=== PATIENT | female | born 1990 | race Two or more races ===

== ENCOUNTER 2024-10-26 13:37 | Inpatient (IN) | payer MEDICAID, OTHER ==
[~2024-10-26] VITALS: Ht 157.5 cm; Wt 57.5 kg
[2024-10-26 14:00] VITALS: PULSE 121; RESP 17; O2SAT 98
--- NOTE | 2024-10-26 14:25 | ED.PDOC ---
HPI (NEURO) HPI Comments 33-year-old female presents with a chief complaint of ALOC. Per EMS, patient was reported missing 3 days ago by her friends. Patients friends and family pinged her cellphone and located patient at a house. Patient was found in the passenger seat of a car accompanied by some male (unknown relationship) who states that 3 days ago patient texted him to go pick her up. 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 Patient is nonverbal at this time, but is awake, alert, and moving all four extremities. Patient came in with four point restraints. No family members at bedside. Information is very limited. PMHx: Unknown at this time PSHx: Unknown at this time HPI: Poor Historian. REVIEW OF SYSTEMS: Unable to obtain since the patient has altered mental status. She is awake and makes eye contact and moving all four extremities but she does not answer any questions. CONSTITUTIONAL: Denies acute: fever, diaphoresis, chills, generalized weakness. HEAD: Denies acute: headache, photophobia Eyes: Denies acute: Double vision, vision loss, eye pain, eye discharge. EARS: Denies acute: tinnitus, hearing loss, ear discharge, ear pain, THROAT: Denies acute: sore throat, swelling, difficulty swallowing , pain with swallowing, change in voice. NECK: Denies acute: neck pain, neck swelling, stiff neck. HEART: Denies acute : chest pain, palpitations, LUNGS: Denies acute: SOB, wheezing, cough, hemoptysis ABDOMEN: Denies acute: abdominal pain, Nausea, Vomiting, diarrhea, melena , hematemesis, hematochezia SKIN: Denies acute: rash, redness, lesions, itchiness. EXTREMITIES: Denies acute: calf pain, numbness, tingling, weakness, denies pain in extremity. Denies acute: Low back pain. Neuro: Denies acute: focal neurological deficit, motor or sensory focal neurological deficit, tremors, seizure like activity, confusion, dizziness, change in mental status, loss of bowel or bladder function, cauda equina like symptoms. : Denies acute: dysuria, hematuria, flank pain, increase in urinary frequency. PSYCH: Denies acute: hallucination, suicidal ideation, homicidal ideation. FEMALE: Denies acute: abnormal vaginal bleeding, foul odor, unusual discharge. PHYSICAL EXAM: General: -----mild---acute distress, awake and alert. Head: normocephalic, atraumatic. Neck: supple, trachea is midline, no swelling. Throat: Dry oral mucosa, no apparent tongue swelling or obstruction. Eyes:, no erythema, no purulent discharge, no proptosis, no icterus. Heart: regular tachycardia, no significant murmur appreciated. Lungs: no apparent respiratory distress, No wheezing, no rhonchi, no crackles. No stridors Clear to auscultation bilaterally. Abdomen: non tender to palpation, non distended, soft, no guarding, no rebound, + bowel sounds. Neuro: Awake, does not answer any questions. Eyes are open. Moving all four extremities. Able to turn her head left and right any noise or movement in the room. Appears anxious. Skin: no petechia, no purpura, no cyanosis, non-pale, not jaundice. Lower extremities: --no - Pitting edema no deformity, no focal swelling, no calf TTP. Makes eye contact. moves all four extremities. Face: no apparent facial droop. PERRLA, EOM-I No nuchal rigidity, Kernig's sign, Brudzinski's sign, no meningeal signs. 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 Was a procedure done?: No Differential Diagnosis (SZ) Seizure: Hyperventilation, Psychogenic Seizure, Alcohol Withdrawl, Anticonvulsant Withdrawl, Closed Head Injury, CVA/TIA, Drug Ingestion, Hypocalcemia, Hypoglycemia, Hyponatremia, Hypoxemia, Meningitis, Encephalopathy CVA: CVA, Delirium Tremens, DKA, Drug Overdose, Electrolyte Imbalance, Encephalopathy, Hypoglycemia, Hypoxemia, Mass Lesion, SAH, TIA, Other (DDX include CVA, TGA, cerebellar ischemia/infarct, carotid stenosis, Intracranial mass/infection/bleed, encephalopathy, electrolyte abnormality, thyroid disease, hydrocephalus, hypoglycemia, drug toxicity, cardiac arrhythmia, seizure, infection in the elderly, Hyperammonemia., kidney failure., sepsis.) General Weakness: Dehydration, Dysrhythmia, Guillain-[place], Hypoglycemia, Meniere's disease, Myasthenia gravis, Myocardial infarction, Renal failure X-Ray, Labs, Meds, VS Vital Signs Date Time Temp Pulse Resp B/P (MAP) Pulse Ox O2 Delivery O2 Flow Rate FiO2 10/26/24 20:00 87 16 98 Room Air* 0 21 10/26/24 20:00 87 16 117/82 (94) 98 10/26/24 18:51 86 10/26/24 18:00 87 16 109/69 (82) 97 10/26/24 16:00 98.9 126 20 136/82 (100) 96 98.9 10/26/24 14:08 123 10/26/24 14:00 121 17 98 Room Air* 0 21 10/26/24 14:00 99.4 121 17 131/76 (94) 98 99.4 10/26/24 13:55 98.0 130 24 190/80 (116) 98 98.0 Lab Test 10/26/24 18:36 10/26/24 17:29 10/26/24 15:27 10/26/24 14:30 Range/Units Urine Color Light-yellow Yellow Urine Clarity Clear Clear Urine pH 6.0 5.0-9.0 Urine Specific [place] 1.017 1.001-1.035 Urine Protein Negative Negative Urine Ketones 2+ H Negative Urine Blood Negative Negative /uL Urine Nitrite Negative Negative Urine Bilirubin Negative Negative Urine Urobilinogen Normal Negative mg/dL Urine Leukocyte Esterase Negative Negative /uL Urine RBC 1 0 - 4 /hpf Urine Microscopic WBC 1 0-5 /HPF Urine Squamous Epithelial Cells Few <5 /hpf Urine Bacteria Few H None Seen /hpf Urine Mucus Few None Seen Urine Glucose Normal Normal mg/dL Urine Opiates Screen Neg NEGATIVE Urine Fentanyl Screen Neg NEGATIVE Urine Barbiturates Screen Neg NEGATIVE Urine Phencyclidine Screen Neg NEGATIVE Urine Amphetamines Screen Pos NEGATIVE Urine Benzodiazepines Screen Neg NEGATIVE Urine Cocaine Screen Neg NEGATIVE Urine Cannabinoids Screen Neg NEGATIVE Troponin I High Sensitivity 6 4 4 </=34 ng/L White Blood Count 11.6 H 4.4-10.8 10^3/uL Red Blood Count 4.76 4.0-5.20 10^6/uL Hemoglobin 13.5 12.2-16.2 g/dL Hematocrit 40.1 36.0-46.0 % Mean Corpuscular Volume 84.2 80.0-100.0 fL Mean Corpuscular Hemoglobin 28.3 28.0-32.0 pg Mean Corpuscular Hemoglobin Concent 33.6 32.0-36.0 g/dL Red Cell Distribution Width 14.2 11.8-14.3 % Platelet Count 289 140-450 10^3/uL Mean Platelet Volume 8.8 6.9-10.8 fL Neutrophils (%) (Auto) 81.7 H 37.0-80.0 % Lymphocytes (%) (Auto) 9.1 L 10.0-50.0 % Monocytes (%) (Auto) 8.5 0.0-12.0 % Eosinophils (%) (Auto) 0.0 0.0-7.0 % Basophils (%) (Auto) 0.7 0.0-2.0 % Neutrophils # (Auto) 9.5 H 1.6-8.6 10 ^3/uL Lymphocytes # (Auto) 1.1 0.4-5.4 10 ^3/uL Monocytes # (Auto) 1.0 0-1.3 10 ^3/uL Eosinophils # (Auto) 0 0-0.8 10 ^3/uL Basophils # (Auto) 0.1 0-0.2 10 ^3/uL Nucleated Red Blood Cells 0.0 % Sodium Level 140 136-145 mmol/L Potassium Level 3.4 L 3.5-5.1 mmol/L Chloride Level 105 98-107 mmol/L Carbon Dioxide Level 23 20-31 mmol/L Anion Gap 12 5-15 Blood Urea Nitrogen 6 L 9-23 mg/dL Creatinine 0.69 0.550-1.02 mg/dL Glomerular Filtration Rate Calc 118 >90 mL/min BUN/Creatinine Ratio 8.7 L 10.0-20.0 Serum Glucose 96 74-106 mg/dL Lactic Acid Level 1.5 0.4-2.0 mmol/L Calcium Level 9.5 8.7-10.4 mg/dL Magnesium Level 2.3 1.6-2.6 mg/dL Total Bilirubin 0.8 0.2-1.0 mg/dL Aspartate Amino Transferase (AST) 60 H 13-40 U/L Alanine Aminotransferase (ALT) 169 H 7-40 U/L Alkaline Phosphatase 89 46-116 U/L Ammonia < 10 L 11-32 umol/L Creatine Kinase 218 H 34-145 U/L Total Protein 7.5 5.7-8.2 g/dL Albumin 4.9 H 3.2-4.8 g/dL Beta HCG, Quantitative 0.7 L 1.5-4.2 mIU/mL Salicylates Level < 3.0 -30 mg/dL Acetaminophen Level < 2.0 L 10.0-20.0 UG/ML Plasma/Serum Blood Alcohol 3.4 <10 mg/dL PATIENT: RAUL PRICEACCT: [id number]: [id number] : 1990 LOC: ER ROOM / BED: / AGE / SEX: 33 / F ADM STATUS: REG ER SERVICE 1417 ORDERING PHYSICIAN: LUIS FERNANDO DOW DO PROCEDURE(s): HWOCT - HEAD WITHOUT CONTRAST REASON: [facility] ORDER NUMBER(s): [id number], ACCESSION NUMBER(s): [id number] EXAM: CT HEAD WITHOUT CONTRAST INDICATION: AMS TECHNIQUE: CT of the head without intravenous contrast. Radiation Dose : 1. Head: CT Dose: CTDI volume is 56.4 mGy. Dose-length product is 998.3 mGy*cm The dose indicators for CT are the volume Computed Tomography (CT) Dose Index (CTDIvol) and the Dose Length Product (DLP), and are measured in units of mGy and mGy-cm, respectively. These indicators are not patient dose, but values generated from the CT scanner acquisition factors. The report includes radiation exposure data for exposures received during this examination. COMPARISON: None FINDINGS: There is no evidence of acute intracranial hemorrhage, extra-axial collection, mass effect, midline shift, herniation or hydrocephalus. The ventricles, sulci and cisterns are age appropriate. The jordan-white differentiation is intact. Patchy periventricular and subcortical white matter hypoattenuation is nonspecific but may be related to small vessel ischemic disease. The visualized paranasal sinuses and mastoid air cells are clear. The surrounding soft tissues and osseous structures are unremarkable. IMPRESSION: 1. No acute intracranial abnormality. Radiation optimization: All CT scans at this facility use at least one of these dose optimization techniques: automated exposure control mA and/or kV adjustment per patient size (includes targeted exams where dose is matched to clinical indication) or iterative reconstruction. ATED BY: CARLITOS WANG MD DICTATED DATE/TIME: 10/26/241617 SIGNED BY: CARLITOS WANG MD SIGNED DATE/TIME: 10/26/241617 PATIENT: RAUL PRICEACCT: [id number] UNIT: [id number] : 1990 LOC: ER ROOM / BED: / AGE / SEX: 33 / F ADM STATUS: REG ER SERVICE 1417 ORDERING PHYSICIAN: LUIS FERNANDO DOW DO PROCEDURE(s): CXRP - CHEST PORTABLE REASON: AMS ORDER NUMBER(s): [id number], ACCESSION NUMBER(s): [id number] AP portable chest CLINICAL INDICATION: AMS FINDINGS: Heart size is normal. Aorta is tortuous. No infiltrates or effusions. No bony thoracic abnormalities. IMPRESSION: 1. No acute cardiopulmonary pathology. ATED BY: YAHIR GALEAS MD DICTATED DATE/TIME: 10/26/241613 SIGNED BY: YAHIR GALEAS MD SIGNED DATE/TIME: 10/26/241613 Time of 1ST Reevaluation: 14:43 Reevaluation 1ST: Unchanged Time of 2ND Reevaluation: 21:20 (Toxic screen has chest pain released showing positive for methamphetamine) Patient Education/Counseling: Diagnosis, Treatment Family Education/Counseling: No Family Present Comments Beta-hCG serum was obtained because patient was altered and is not following command and will not be able to provide us a urine sample and has been combative and we will refused a straight catheterization to obtain urine. If I do not get beta-hCG serum there was will cause a delay of care to obtain test for imaging studies to rule out any possible trauma or intracranial injury Patient presented with the above HPI.----altered level of consciousness/altered mental status--workup was initiated. patient was found with the above mentioned diagnosis. the following medications were ordered: please refer to order lists of meds and tests obtained by myself Dr. Dow. Patient ED course and VS have been stabilized. Patient has been reassessed in the ED and remained in a stable condition. Patient has been observed in the ED adequate length of time to insure improvement/stability. Escalation of care considered: Consideration of escalation to observation or admission Patient was ADMITTED to the medicine team for further evaluation and treatment of their presentation. All the reports of any imaging studies that were ordered by myself were reviewed by myself. Departure 1 Departure Time of Disposition: 21:20 Impression: Primary Impression: Altered mental status Additional Impression: Methamphetamine abuse Disposition: ADMITTED INPATIENT Admit to: Tele Condition: Guarded e-Prescriptions No Active Prescriptions or Reported Meds Discharged With: Self Critical Care Note Critical Care Time?: Yes (45 min-critical care time only) Heart Score Heart Score: Heart Score Response (Comments) Value History N/A 0 EKG N/A 0 Age N/A 0 Risk Factors N/A 0 Troponin N/A 0 Total 0 I personally scribed for LUIS FERNANDO DOW DO ([email or web address]) on 10/26/24 at 14:25. Electronically submitted by Ruy Oneill ([email or web address]). I personally scribed for LUIS FERNANDO DOW DO ([email or web address]) on 10/26/24 at 16:53. Electronically submitted by Ruy Oneill ([email or web address]). LUIS FERNANDO DOW DO Oct 26, 2024 14:25
[2024-10-26] MEDS: SODIUM CHLORIDE 0.9% 1,000 ML IV ONE ×2 (14:36→15:25)
[2024-10-26] MEDS: LORazepam 2MG/ML-1ML VIAL IV ONE (14:36)
[2024-10-26 14:58] LABS: Basophils # (auto) 0.1 10 ^3/uL (0-0.2); Basophils % (auto) 0.7 % (0.0-2.0); Eosinophils # (auto) 0 10 ^3/uL (0-0.8); Hematocrit 40.1 % (36.0-46.0); Hemoglobin 13.5 g/dL (12.2-16.2); Lymphocytes # (auto) 1.1 10 ^3/uL (0.4-5.4); Lymphocytes % (auto) 9.1 % (10.0-50.0); Mean Corpuscular Hemoglobin 28.3 pg (28.0-32.0); Mean Corpuscular Hgb Conc. 33.6 g/dL (32.0-36.0); Mean Corpuscular Volume 84.2 fL (80.0-100.0); Monocytes % (auto) 8.5 % (0.0-12.0); Neutrophils # (auto) 9.5 10 ^3/uL (1.6-8.6); Neutrophils % (auto) 81.7 % (37.0-80.0); Platelet Count (auto) 289 10^3/uL (140-450); Red Blood Cells 4.76 10^6/uL (4.0-5.20); Red Cell Distribution Width 14.2 % (11.8-14.3); White Blood Cell 11.6 10^3/uL (4.4-10.8)
[2024-10-26 15:17] LABS: Acetaminophen < 2.0 UG/ML (10.0-20.0); Salicylate < 3.0 mg/dL (-30)
[2024-10-26 15:18] LABS: Alkaline Phosphatase 89 U/L (46-116); Anion Gap 12 (5-15); BUN/Creatinine Ratio 8.7 (10.0-20.0); Bilirubin, Total 0.8 mg/dL (0.2-1.0); Blood Alcohol 3.4 mg/dL (<10); Calcium 9.5 mg/dL (8.7-10.4); Carbon Dioxide 23 mmol/L (20-31); Chloride 105 mmol/L (98-107); Glucose 96 mg/dL (74-106); Magnesium 2.3 mg/dL (1.6-2.6); Sodium 140 mmol/L (136-145); Total Protein 7.5 g/dL (5.7-8.2)
[2024-10-26 15:19] LABS: Alanine Aminotransferase 169 U/L (7-40); Albumin 4.9 g/dL (3.2-4.8); Aspartate Aminotransferase 60 U/L (13-40); Blood Urea Nitrogen 6 mg/dL (9-23); Creatine Kinase IFCC 218 U/L (34-145); Potassium 3.4 mmol/L (3.5-5.1)
--- NOTE | 2024-10-26 16:16 | DVH ---
AP portable chest CLINICAL INDICATION: AMS FINDINGS: Heart size is normal. Aorta is tortuous. No infiltrates or effusions. No bony thoracic abno rmalities. IMPRESSION: 1. No acute cardiopulmonary pathology.
--- NOTE | 2024-10-26 16:20 | DVH ---
EXAM: CT HEAD WITHOUT CONTRAST INDICATION: AMS TECHNIQUE: CT of the head without intravenous contrast. Radiation Dose : 1. Head: CT Dose: CTDI volume is 56.4 mGy. Dose-length product is 998.3 mGy*cm The dose indicators for CT are the volume Computed Tomography (CT) Dose Index (CTDIvol) and the Dose Length Product (DLP), and are measured in units of mGy and mGy-cm, respectively. These indicators are not patient dose, but values generated from the CT scanner acquisition factors. The report includes radiation exposure data for exposures received during this examination. COMPARISON: None FINDINGS: There is no evidence of acute intracranial hemorrhage, extra-axial collection, mass effect, midline s hift, herniation or hydrocephalus. The ventricles, sulci and cisterns are age appropriate. The jordan-white differentiation is intact. Patchy periventricular and subcortical white matter hypoattenuation is nonspecific but may be related to small vessel ischemic disease. The visualized paranasal sinuses and mastoid air cells are clear. The surrounding soft tissues and osseous structures are unremarkable. IMPRESSION: 1. No acute intracranial abnormality. Radiation optimization: All CT scans at this facility use at least one of these dose optimization fernando hniques: automated exposure control mA and/or kV adjustment per patient size (includes targeted exam s where dose is matched to clinical indication) or iterative reconstruction.
[2024-10-26 20:00] VITALS: PULSE 87; RESP 16; O2SAT 98
[2024-10-26 20:09] LABS: Urine Bacteria FEW /hpf (None Seen); Urine Blood Negative /uL (Negative); Urine Clarity Clear (Clear); Urine Color Light-Yellow (Yellow); Urine Mucus FEW (None Seen); Urine Protein, UAD Negative (Negative); Urine Specific Gravity 1.017 (1.001-1.035); Urine Squamous Epithelial Cell FEW /hpf (<5); Urine Urobilinogen Normal (Negative); Urine WBC 1 /HPF (0-5)
[2024-10-26 21:11] LABS: Amphetamine Screen, Urine Pos (NEGATIVE); Barbiturate Scree,Urine Neg (NEGATIVE); Benzodiazephine Screen, Urine Neg (NEGATIVE); Cannabinoid Screen, Urine Neg (NEGATIVE); Cocaine Screen, Urine Neg (NEGATIVE); Opiate Scree,Urine Neg (NEGATIVE); Phencyclidine Screen, Urine Neg (NEGATIVE)
[2024-10-26] MEDS: SODIUM CHLORIDE 0.9% 1,000 ML IV SCH (22:30)
[2024-10-26] MEDS: POTASSIUM CHL 20 Meq TABLET PO ONE (22:30)
[2024-10-26] MEDS: PANTOPRAZOLE 40 MG TAB PO ONE (22:30)
--- NOTE | 2024-10-26 23:35 | DVHHPRES ---
History of Present Illness Resident Creating Document: TERRYLOUSYLVIE RESIDENT History of Present Illness Patient is a 33-year-old female with no significant past medical history was brought in to the ED with a chief complaint of altered level of consciousness. Family reported that the patient was missing since 3 days and they tracked her eventually to a location where she was found in the car on the passenger seat with an unknown male who reported to be her friend and the usually do "drugs together". On arrival to the ED patient was altered and was in 4 point restraint. Patient was given IV fluids. When I went and talked with the patient, she was A&O to time, person but disoriented to place and she knew why she was in the hospital. Patient reported that she lapsed on methamphetamine. Patient denied any chest pain, shortness of breath, nausea or vomiting, palpitations, headache, blurred vision. Past medical history: None Past surgical history: None Social history: Patient smokes methamphetamine but denies any alcohol or smoking tobacco Home medications: None Review of Systems Review of Systems Seen and examined at the bedside Reports feeling anxious Denies any other acute complaints Allergies: Coded Allergies: UNOBTAINABLE (Unverified , 10/26/24) Medications Current Medications Medications Dose Ordered Sig/Jayda Route Start Time Stop Time Status Last Admin Dose Admin Sodium Chloride 1,000 ml @ 100 mls/hr Q10H IV 10/26/24 22:00 10/26/24 22:30 100 MLS/HR Lorazepam 1 mg Q12HP PRN IV 10/26/24 22:00 Pantoprazole Sodium 40 mg DAILY@0600 PO 10/27/24 06:00 Exam Vital Signs Vital Signs Date Time Temp Pulse Resp B/P (MAP) Pulse Ox O2 Delivery O2 Flow Rate FiO2 10/26/24 20:00 87 16 98 Room Air* 0 21 10/26/24 20:00 117/82 (94) 10/26/24 16:00 98.9 98.9 Exam Gen - no pallor, no icterus, no cyanosis, no clubbing, no LAD, no edema . Skin - Patients skin is warm and dry. HEENT - normocephalic, atraumatic, moist mucous membranes. Neck - full ROM, no LAD, no JVD Pulmonary - B/L equal breath sounds, no crackles, no wheezing, no stridor. cardiovascular - regular S1,S2 heard, no added sounds, no murmurs heard. GI - soft, nontender abdomen. no hepatospleenomegaly. Bowel sounds normoactive Neurological - Patient is A/O X 3 . Bilateral upper extremity strength 5/5, bilateral lower extremity strength 5/5, no facial droop, normal speech, no tremor, no sensory deficiets. Labs/Xrays Labs Test 10/26/24 18:36 10/26/24 17:29 10/26/24 14:30 Range/Units Urine Color Light-yellow Yellow Urine Clarity Clear Clear Urine pH 6.0 5.0-9.0 Urine Specific [place] 1.017 1.001-1.035 Urine Protein Negative Negative Urine Ketones 2+ H Negative Urine Blood Negative Negative /uL Urine Nitrite Negative Negative Urine Bilirubin Negative Negative Urine Urobilinogen Normal Negative mg/dL Urine Leukocyte Esterase Negative Negative /uL Urine RBC 1 0 - 4 /hpf Urine Microscopic WBC 1 0-5 /HPF Urine Squamous Epithelial Cells Few <5 /hpf Urine Bacteria Few H None Seen /hpf Urine Mucus Few None Seen Urine Glucose Normal Normal mg/dL Urine Opiates Screen Neg NEGATIVE Urine Fentanyl Screen Neg NEGATIVE Urine Barbiturates Screen Neg NEGATIVE Urine Phencyclidine Screen Neg NEGATIVE Urine Amphetamines Screen Pos NEGATIVE Urine Benzodiazepines Screen Neg NEGATIVE Urine Cocaine Screen Neg NEGATIVE Urine Cannabinoids Screen Neg NEGATIVE Troponin I High Sensitivity 6 </=34 ng/L White Blood Count 11.6 H 4.4-10.8 10^3/uL Red Blood Count 4.76 4.0-5.20 10^6/uL Hemoglobin 13.5 12.2-16.2 g/dL Hematocrit 40.1 36.0-46.0 % Mean Corpuscular Volume 84.2 80.0-100.0 fL Mean Corpuscular Hemoglobin 28.3 28.0-32.0 pg Mean Corpuscular Hemoglobin Concent 33.6 32.0-36.0 g/dL Red Cell Distribution Width 14.2 11.8-14.3 % Platelet Count 289 140-450 10^3/uL Mean Platelet Volume 8.8 6.9-10.8 fL Neutrophils (%) (Auto) 81.7 H 37.0-80.0 % Lymphocytes (%) (Auto) 9.1 L 10.0-50.0 % Monocytes (%) (Auto) 8.5 0.0-12.0 % Eosinophils (%) (Auto) 0.0 0.0-7.0 % Basophils (%) (Auto) 0.7 0.0-2.0 % Neutrophils # (Auto) 9.5 H 1.6-8.6 10 ^3/uL Lymphocytes # (Auto) 1.1 0.4-5.4 10 ^3/uL Monocytes # (Auto) 1.0 0-1.3 10 ^3/uL Eosinophils # (Auto) 0 0-0.8 10 ^3/uL Basophils # (Auto) 0.1 0-0.2 10 ^3/uL Nucleated Red Blood Cells 0.0 % Sodium Level 140 136-145 mmol/L Potassium Level 3.4 L 3.5-5.1 mmol/L Chloride Level 105 98-107 mmol/L Carbon Dioxide Level 23 20-31 mmol/L Anion Gap 12 5-15 Blood Urea Nitrogen 6 L 9-23 mg/dL Creatinine 0.69 0.550-1.02 mg/dL Glomerular Filtration Rate Calc 118 >90 mL/min BUN/Creatinine Ratio 8.7 L 10.0-20.0 Serum Glucose 96 74-106 mg/dL Lactic Acid Level 1.5 0.4-2.0 mmol/L Calcium Level 9.5 8.7-10.4 mg/dL Magnesium Level 2.3 1.6-2.6 mg/dL Total Bilirubin 0.8 0.2-1.0 mg/dL Aspartate Amino Transferase (AST) 60 H 13-40 U/L Alanine Aminotransferase (ALT) 169 H 7-40 U/L Alkaline Phosphatase 89 46-116 U/L Ammonia < 10 L 11-32 umol/L Creatine Kinase 218 H 34-145 U/L Total Protein 7.5 5.7-8.2 g/dL Albumin 4.9 H 3.2-4.8 g/dL Beta HCG, Quantitative 0.7 L 1.5-4.2 mIU/mL Salicylates Level < 3.0 -30 mg/dL Acetaminophen Level < 2.0 L 10.0-20.0 UG/ML Plasma/Serum Blood Alcohol 3.4 <10 mg/dL Assessment/Plan Assessment/Plan Acute metabolic encephalopathy likely due to drugs Methamphetamine use Anxiety likely due to above Hypokalemia - urine drug screen positive for methamphetamine - IV fluids - lorazepam PRN - potassium replaced PUD prophylaxis: Protonix Goals of care discussed with the patient for over 23 minutes. Full code Plan discussed with Dr. Epstein Plan discussed with: Patient My Orders Orders - MARITZA STEWART Procedure Category Date Status Time Admit ADMIT 10/26/24 Transmitted 21:50 Stat Ekg For Chest JAZLYN 10/26/24 In Process Pain 21:50 Notify Md Of Changes JAZLYN 10/26/24 In Process From Base 21:50 Sodium Chloride 0.9% PHA 10/26/24 In Process 22:00 Complete Blood Count LAB 10/27/24 Verified 04:00 Comprehensive LAB 10/27/24 Verified Metabolic Panel 04:00 Lorazepam 2mg/Ml Inj PHA 10/26/24 In Process (Ativan Inj) 22:00 Pantoprazole Tablet PHA 10/27/24 In Process (Protonix Tablet) 06:00 Date of Service: Oct 26, 2024 Billing Provider: GIOVANNI EPSTEIN MD Common Visit Codes: 18699-[id number] INP/OBS CARE (HIGH) Secondary Visit Codes: 26263-[id number] CARE PLAN 30 MINUTES MARITZA STEWART RESIDENT Oct 26, 2024 23:35
[2024-10-27 00:08] VITALS: BP 140/97; PULSE 107; RESP 18; TEMP 98.7; O2SAT 0; O2SAT 98
[2024-10-27 01:00] VITALS: BP 140/97; PULSE 107; RESP 17; TEMP 98.7; O2SAT 98
[2024-10-27 05:00] VITALS: BP 124/79; PULSE 105; RESP 20; TEMP 98.3; O2SAT 97
[2024-10-27] MEDS: PANTOPRAZOLE 40 MG TAB PO SCH (05:44)
[2024-10-27] MEDS: LORazepam 2MG/ML-1ML VIAL IV PRN (05:46)
[2024-10-27 06:54] LABS: Basophils # (auto) 0.1 10 ^3/uL (0-0.2); Basophils % (auto) 0.7 % (0.0-2.0); Eosinophils # (auto) 0 10 ^3/uL (0-0.8); Eosinophils % (auto) 0.2 % (0.0-7.0); Hematocrit 34.1 % (36.0-46.0); Hemoglobin 11.6 g/dL (12.2-16.2); Lymphocytes # (auto) 1.2 10 ^3/uL (0.4-5.4); Mean Corpuscular Hemoglobin 28.8 pg (28.0-32.0); Mean Corpuscular Hgb Conc. 34.1 g/dL (32.0-36.0); Mean Corpuscular Volume 84.6 fL (80.0-100.0); Monocytes # (auto) 0.8 10 ^3/uL (0-1.3); Monocytes % (auto) 10.9 % (0.0-12.0); Neutrophils # (auto) 5.4 10 ^3/uL (1.6-8.6); Neutrophils % (auto) 72.2 % (37.0-80.0); Platelet Count (auto) 248 10^3/uL (140-450); Red Blood Cells 4.03 10^6/uL (4.0-5.20); Red Cell Distribution Width 14.5 % (11.8-14.3); White Blood Cell 7.5 10^3/uL (4.4-10.8)
[2024-10-27 07:08] LABS: Albumin 4.3 g/dL (3.2-4.8); Anion Gap 12 (5-15); Carbon Dioxide 21 mmol/L (20-31); Chloride 106 mmol/L (98-107); Glucose 81 mg/dL (74-106); Sodium 139 mmol/L (136-145)
[2024-10-27 07:09] LABS: Total Protein 6.4 g/dL (5.7-8.2)
[2024-10-27 07:11] LABS: Bilirubin, Total 0.7 mg/dL (0.2-1.0)
[2024-10-27 07:12] LABS: Alanine Aminotransferase 112 U/L (7-40); Aspartate Aminotransferase 39 U/L (13-40); BUN/Creatinine Ratio 9.8 (10.0-20.0); Blood Urea Nitrogen < 5 mg/dL (9-23); Calcium 8.2 mg/dL (8.7-10.4); Potassium 3.4 mmol/L (3.5-5.1)
[2024-10-27 07:42] LABS: Alkaline Phosphatase 75 U/L (46-116)
[2024-10-27 08:00] VITALS: PULSE 60; RESP 18; O2SAT 99
--- NOTE | 2024-10-27 08:51 | DVH ---
INDICATION: transamnitis TECHNIQUE: Multiple real-time sonographic images were obtained of the right upper quadrant. COMPARISON: None FINDINGS: The liver demonstrates HETEROGENEOUS echotexture without focal mass lesions. The liver fabio ures 16 cm. There is no intrahepatic or extrahepatic ductal dilatation. The common duct measures 0 .5 mm. GALLSTONES ARE PRESENT. The gallbladder wall measures 0.3mm and is within normal limits. The right kidney measures 12 cm. The right kidney is normal in contour, size, and shape. The echog enicity is normal. There is no hydronephrosis. The pancreas is not well visualized due to overlying bowel gas. IMPRESSION: Gallstones. Hepatic steatosis.
[2024-10-27 09:00] VITALS: BP 116/75; PULSE 60; RESP 18; TEMP 97.4; O2SAT 99
--- NOTE | 2024-10-27 10:33 | ECG ---
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
[2024-10-27] MEDS: POTASSIUM EFFERVESENT TAB 25 MEQ PO ONE (11:44)
[2024-10-27] MEDS: CYANOCOBALAMIN (B-12) 1000 MCG/1 ML VIAL IM ONE (13:00)
[2024-10-27] MEDS: ERGOCALCIFEROL 50,000 UNIT(1.25MG) CAP PO SCH (13:00)
--- NOTE | 2024-10-27 17:23 | DVHDSRES ---
Discharge Summary Date of Admission Resident Creating Document: MARITZA STEWART RESIDENT Oct 26, 2024 at 21:50 Labs/Diagnostic Data: Laboratory Results Test 10/27/24 07:57 10/27/24 06:26 10/26/24 18:36 10/26/24 17:29 White Blood Count 7.5 10^3/uL (4.4-10.8) Red Blood Count 4.03 10^6/uL (4.0-5.20) Hemoglobin 11.6 g/dL (12.2-16.2) Hematocrit 34.1 % (36.0-46.0) Mean Corpuscular Volume 84.6 fL (80.0-100.0) Mean Corpuscular Hemoglobin 28.8 pg (28.0-32.0) Mean Corpuscular Hemoglobin Concent 34.1 g/dL (32.0-36.0) Red Cell Distribution Width 14.5 % (11.8-14.3) Platelet Count 248 10^3/uL (140-450) Mean Platelet Volume 8.6 fL (6.9-10.8) Neutrophils (%) (Auto) 72.2 % (37.0-80.0) Lymphocytes (%) (Auto) 16.0 % (10.0-50.0) Monocytes (%) (Auto) 10.9 % (0.0-12.0) Eosinophils (%) (Auto) 0.2 % (0.0-7.0) Basophils (%) (Auto) 0.7 % (0.0-2.0) Neutrophils # (Auto) 5.4 10 ^3/uL (1.6-8.6) Lymphocytes # (Auto) 1.2 10 ^3/uL (0.4-5.4) Monocytes # (Auto) 0.8 10 ^3/uL (0-1.3) Eosinophils # (Auto) 0 10 ^3/uL (0-0.8) Basophils # (Auto) 0.1 10 ^3/uL (0-0.2) Nucleated Red Blood Cells 0.0 % Sodium Level 139 mmol/L (136-145) Potassium Level 3.4 mmol/L (3.5-5.1) Chloride Level 106 mmol/L (98-107) Carbon Dioxide Level 21 mmol/L (20-31) Anion Gap 12 (5-15) Blood Urea Nitrogen < 5 mg/dL (9-23) Creatinine 0.51 mg/dL (0.550-1.02) Glomerular Filtration Rate Calc 127 mL/min (>90) BUN/Creatinine Ratio 9.8 (10.0-20.0) Serum Glucose 81 mg/dL (74-106) Calcium Level 8.2 mg/dL (8.7-10.4) Total Bilirubin 0.7 mg/dL (0.2-1.0) Aspartate Amino Transferase (AST) 39 U/L (13-40) Alanine Aminotransferase (ALT) 112 U/L (7-40) Alkaline Phosphatase 75 U/L (46-116) Total Protein 6.4 g/dL (5.7-8.2) Albumin 4.3 g/dL (3.2-4.8) Vitamin B12 Level 368 pg/mL (211-911) Vitamin D 25-Hydroxy 14.4 ng/mL (30.0-100) Thyroid Stimulating Hormone (TSH) 1.20 uIU/mL (0.55-4.78) HIV (1&2) Antibody Negative (Negative) Urine Color Light-yellow (Yellow) Urine Clarity Clear (Clear) Urine pH 6.0 (5.0-9.0) Urine Specific [place] 1.017 (1.001-1.035) Urine Protein Negative (Negative) Urine Ketones 2+ (Negative) Urine Blood Negative /uL (Negative) Urine Nitrite Negative (Negative) Urine Bilirubin Negative (Negative) Urine Urobilinogen Normal mg/dL (Negative) Urine Leukocyte Esterase Negative /uL (Negative) Urine RBC 1 /hpf (0 - 4) Urine Microscopic WBC 1 /HPF (0-5) Urine Squamous Epithelial Cells Few /hpf (<5) Urine Bacteria Few /hpf (None Seen) Urine Mucus Few (None Seen) Urine Glucose Normal mg/dL (Normal) Urine Opiates Screen Neg (NEGATIVE) Urine Fentanyl Screen Neg (NEGATIVE) Urine Barbiturates Screen Neg (NEGATIVE) Urine Phencyclidine Screen Neg (NEGATIVE) Urine Amphetamines Screen Pos (NEGATIVE) Urine Benzodiazepines Screen Neg (NEGATIVE) Urine Cocaine Screen Neg (NEGATIVE) Urine Cannabinoids Screen Neg (NEGATIVE) Troponin I High Sensitivity 6 ng/L (</=34) Test 10/26/24 14:30 Lactic Acid Level 1.5 mmol/L (0.4-2.0) Magnesium Level 2.3 mg/dL (1.6-2.6) Ammonia < 10 umol/L (11-32) Creatine Kinase 218 U/L (34-145) Beta HCG, Quantitative 0.7 mIU/mL (1.5-4.2) Salicylates Level < 3.0 mg/dL (-30) Acetaminophen Level < 2.0 UG/ML (10.0-20.0) Plasma/Serum Blood Alcohol 3.4 mg/dL (<10) Other Laboratory Tests 10/27/24 06:26 Discharge Statement: "Patient was advised to return to the ER or call 911 if any headaches, dizziness, shortness of breath, chest pain, abdominal pain, bleeding, fevers, or worsening of medical condition. Patient was counseled about treatment plan, medications, possible side effects, patientverbalized understanding. All questions were answered to the best of my ability. This discharge took greater then 30 minutes in planning, reviewing documentation, counseling the patient, and discussing with other team members." ASSESSMENT ASSESSMENT Assessment JOSELYN LAWRENCE RESIDENT Oct 27, 2024 17:23
--- NOTE | 2024-10-27 18:34 | DVHDSRES ---
Discharge Summary Date of Admission Resident Creating Document: JOSELYN LAWRENCE RESIDENT Oct 26, 2024 at 21:50 Date of Discharge: Oct 27, 2024 Labs/Diagnostic Data: Laboratory Results Test 10/27/24 07:57 10/27/24 06:26 10/26/24 18:36 10/26/24 17:29 White Blood Count 7.5 10^3/uL (4.4-10.8) Red Blood Count 4.03 10^6/uL (4.0-5.20) Hemoglobin 11.6 g/dL (12.2-16.2) Hematocrit 34.1 % (36.0-46.0) Mean Corpuscular Volume 84.6 fL (80.0-100.0) Mean Corpuscular Hemoglobin 28.8 pg (28.0-32.0) Mean Corpuscular Hemoglobin Concent 34.1 g/dL (32.0-36.0) Red Cell Distribution Width 14.5 % (11.8-14.3) Platelet Count 248 10^3/uL (140-450) Mean Platelet Volume 8.6 fL (6.9-10.8) Neutrophils (%) (Auto) 72.2 % (37.0-80.0) Lymphocytes (%) (Auto) 16.0 % (10.0-50.0) Monocytes (%) (Auto) 10.9 % (0.0-12.0) Eosinophils (%) (Auto) 0.2 % (0.0-7.0) Basophils (%) (Auto) 0.7 % (0.0-2.0) Neutrophils # (Auto) 5.4 10 ^3/uL (1.6-8.6) Lymphocytes # (Auto) 1.2 10 ^3/uL (0.4-5.4) Monocytes # (Auto) 0.8 10 ^3/uL (0-1.3) Eosinophils # (Auto) 0 10 ^3/uL (0-0.8) Basophils # (Auto) 0.1 10 ^3/uL (0-0.2) Nucleated Red Blood Cells 0.0 % Sodium Level 139 mmol/L (136-145) Potassium Level 3.4 mmol/L (3.5-5.1) Chloride Level 106 mmol/L (98-107) Carbon Dioxide Level 21 mmol/L (20-31) Anion Gap 12 (5-15) Blood Urea Nitrogen < 5 mg/dL (9-23) Creatinine 0.51 mg/dL (0.550-1.02) Glomerular Filtration Rate Calc 127 mL/min (>90) BUN/Creatinine Ratio 9.8 (10.0-20.0) Serum Glucose 81 mg/dL (74-106) Calcium Level 8.2 mg/dL (8.7-10.4) Total Bilirubin 0.7 mg/dL (0.2-1.0) Aspartate Amino Transferase (AST) 39 U/L (13-40) Alanine Aminotransferase (ALT) 112 U/L (7-40) Alkaline Phosphatase 75 U/L (46-116) Total Protein 6.4 g/dL (5.7-8.2) Albumin 4.3 g/dL (3.2-4.8) Vitamin B12 Level 368 pg/mL (211-911) Vitamin D 25-Hydroxy 14.4 ng/mL (30.0-100) Thyroid Stimulating Hormone (TSH) 1.20 uIU/mL (0.55-4.78) HIV (1&2) Antibody Negative (Negative) Urine Color Light-yellow (Yellow) Urine Clarity Clear (Clear) Urine pH 6.0 (5.0-9.0) Urine Specific [place] 1.017 (1.001-1.035) Urine Protein Negative (Negative) Urine Ketones 2+ (Negative) Urine Blood Negative /uL (Negative) Urine Nitrite Negative (Negative) Urine Bilirubin Negative (Negative) Urine Urobilinogen Normal mg/dL (Negative) Urine Leukocyte Esterase Negative /uL (Negative) Urine RBC 1 /hpf (0 - 4) Urine Microscopic WBC 1 /HPF (0-5) Urine Squamous Epithelial Cells Few /hpf (<5) Urine Bacteria Few /hpf (None Seen) Urine Mucus Few (None Seen) Urine Glucose Normal mg/dL (Normal) Urine Opiates Screen Neg (NEGATIVE) Urine Fentanyl Screen Neg (NEGATIVE) Urine Barbiturates Screen Neg (NEGATIVE) Urine Phencyclidine Screen Neg (NEGATIVE) Urine Amphetamines Screen Pos (NEGATIVE) Urine Benzodiazepines Screen Neg (NEGATIVE) Urine Cocaine Screen Neg (NEGATIVE) Urine Cannabinoids Screen Neg (NEGATIVE) Troponin I High Sensitivity 6 ng/L (</=34) Test 10/26/24 14:30 Lactic Acid Level 1.5 mmol/L (0.4-2.0) Magnesium Level 2.3 mg/dL (1.6-2.6) Ammonia < 10 umol/L (11-32) Creatine Kinase 218 U/L (34-145) Beta HCG, Quantitative 0.7 mIU/mL (1.5-4.2) Salicylates Level < 3.0 mg/dL (-30) Acetaminophen Level < 2.0 UG/ML (10.0-20.0) Plasma/Serum Blood Alcohol 3.4 mg/dL (<10) Other Laboratory Tests 10/27/24 06:26 Brief Hx & Hospital Course: Patient is a 33-year-old female with no significant past medical history was brought in to the ED with a chief complaint of altered level of consciousness. Family reported that the patient was missing since 3 days and they tracked her eventually to a location where she was found in the car on the passenger seat with an unknown male who reported to be her friend and the usually do "drugs together". On arrival to the ED patient was altered and was in 4 point restraint. Patient was given IV fluids. When I went and talked with the patient, she was A&O to time, person but disoriented to place and she knew why she was in the hospital. Patient reported that she lapsed on methamphetamine. Patient denied any chest pain, shortness of breath, nausea or vomiting, palpitations, headache, blurred vision. During the hospitalization, UDS was positive for methamphetamines. Patient was A&O x1, only knew her name, did not know place/time/situation. Patient was very reserved, not answering questions and denied any drug use. Patient's sister was called and updated regarding patient behavior. Per sister, patient would behave like this and would be nonresponsive whenever she gets craving and she would leave the house. She was started on lorazepam p.r.n., IV fluids, electrolytes were replenished. Vitamin B12 and vitamin D were replenish. HIV, hepatitis panel were ordered. Liver ultrasound showed hepatic steatosis. Head CT was negative. Patient eloped during medical evaluation. Condition at Discharge: Undetermined Final Diagnosis/Problems List Acute metabolic encephalopathy likely due to substance use Methamphetamine use dependence Hypertensive crisis secondary to above Anxiety likely due to above Asymptomatic cholelithiasis Hepatic steatosis Hypokalemia Vitamin-D deficiency Vitamin B12 deficiency Discharge Disposition: Eloped Discharge Statement: "Patient was advised to return to the ER or call 911 if any headaches, dizziness, shortness of breath, chest pain, abdominal pain, bleeding, fevers, or worsening of medical condition. Patient was counseled about treatment plan, medications, possible side effects, patientverbalized understanding. All questions were answered to the best of my ability. This discharge took greater then 30 minutes in planning, reviewing documentation, counseling the patient, and discussing with other team members." ASSESSMENT ASSESSMENT Assessment Date of Service: Oct 27, 2024 Billing Provider: MANSI REYES MD Common Visit Codes: 81102-JVN/OBS DISCH DAY >30min JOSELYN LAWRENCE RESIDENT Oct 27, 2024 18:34 MANSI REYES MD Oct 27, 2024 21:06
[2024-10-28 11:04] LABS: Hepatitis B Surface Antibody Positive (Negative); Hepatitis B Surface Antigen Negative (Negative)
== END 2024-10-27 14:00 | disposition left against medical advice (07) | DRG 52 ==
LOC: EDBD 13:37 → ER 13:46 → OVERFLOW 21:50 → CENTRAL 23:48 → WEST WING 10-27 02:48
PROVIDERS: ADMIT Internal Medicine Geriatric Medicine; ATTEND Emergency Medicine
DX: G93.41 Metabolic encephalopathy (principal); K76.0 Fatty (change of) liver, not elsewhere classified; E53.8 Deficiency of other specified B group vitamins; I16.9 Hypertensive crisis, unspecified; F15.10 Other stimulant abuse, uncomplicated; F41.9 Anxiety disorder, unspecified; E87.6 Hypokalemia; E55.9 Vitamin D deficiency, unspecified; K80.20 Calculus of gallbladder without cholecystitis without obstruction; T50.995A Adverse effect of other drugs, medicaments and biological substances, initial encounter; Z78.1 Physical restraint status; Y92.89 Other specified places as the place of occurrence of the external cause
CPT/HCPCS: 36415; 70450; 71045; 76705; 80053; 80307; 80320; 80329; 81001; 82140; 82306; 82550; 82607; 83605; 83735; 84443; 84484; 84702; 85025; 86703; 86706; 86803; 87340; 93005; 99291; G0378